=== PATIENT | female | born 1980 | race Caucasian/White ===

== ENCOUNTER → 2018-04-13 13:30 | Outpatient (CLI) | payer SELFPAY ==
[2018-04-16 15:04] LABS: HPV Reflexed? NOT INDICATED
== END ==
PROVIDERS: Visit Provider Obstetrics & Gynecology
DX: Z12.4 Encounter for screening for malignant neoplasm of cervix (principal)
CPT/HCPCS: 88175; G0145

== ENCOUNTER → 2018-07-09 08:17 | Outpatient (CLI) | payer SELFPAY ==
--- NOTE | 2018-07-09 08:22 | RAD_ITS ---
STUDY: X-RAY - ESOPHAGUS (BARIUM SWALLOW) WITH FLUOROSCOPY REASON FOR EXAM: Female, 37 years old. One-year history of dysphagia. TECHNIQUE: 13 view(s) of the esophagus were obtained following swallowing of barium. FLUOROSCOPY TIME (if supplied): (0:30) minutes/seconds COMPARISON: None. FINDINGS: There is no demonstrated esophageal foreign body. There is no demonstrated stricture or mucosal abnormality. Normal gastroesophageal junction, without a demonstrated hiatal hernia. The patient ingested a 12 mm tablet of barium without any difficulty. Normal visualized aortic arch and descending thoracic aorta. Normal visualized pulmonary parenchyma. Normal visualized osseous structures of the thorax. RAD/Esophagus Only IMPRESSION: Normal plain film x-ray examination (barium swallow) of the esophagus. Electronically Signed: Omar Franco MD at 9:40 EST , Service support ,
== END ==
PROVIDERS: Family Provider Nurse Practitioner Family; PCP Nurse Practitioner Family; Referring Provider Otolaryngology; Visit Provider Otolaryngology
DX: R13.10 Dysphagia, unspecified (principal)
CPT/HCPCS: 74220

== ENCOUNTER → 2019-06-09 17:56 | Outpatient (CLI) | payer OTHER, SELFPAY ==
[2019-06-09 20:42] LABS: Chlamydia Trachomatis by PCR Negative (Negative); Neisserai gonorrhoeae by PCR Negative (Negative); Probe Check PASS; Sample Adequacy Control PASS; Specimen Processing Control PASS
== END ==
PROVIDERS: Obstetrics & Gynecology; PCP Nurse Practitioner Family; Referring Provider Obstetrics & Gynecology; Visit Provider Obstetrics & Gynecology
DX: Z11.3 Encounter for screening for infections with a predominantly sexual mode of transmission (principal)
CPT/HCPCS: 87491; 87591

== ENCOUNTER → 2019-06-22 15:58 | Outpatient (CLI) | payer OTHER, SELFPAY ==
[2019-06-22 17:44] LABS: Color, Urine Yellow (Yellow); Glucose, Dipstick Normal (Normal); Ketone-Dipstick Negative (Negative); Leukocyte Esterase-Dipstick 25 /ul (Negative); Nitrite-Dipstick Negative (Negative); Occult Blood-Urine Negative /ul (Negative); Protein-Dipstick Negative (Negative); Specific Gravity, Urine 1.015 (1.002-1.030); Urine Bilirubin Dipstick Negative (Negative); Urine Clarity Clear (Clear); Urine Urobilinogen Normal (Normal)
[2019-06-22 17:47] LABS: Absolute Lymphocyte Count 1.76 X10^3/uL (0.83-4.51); Absolute Neutrophil Count 4.6 X10^3/uL (2.0-7.7); Basophil# 0.02 X10^3/uL; Basophil% 0.3 % (0-1); Eosinophil# 0.06 X10^3/uL; Eosinophils% 0.8 % (0-5); Hematocrit 36.1 % (37-47); Hemoglobin 11.6 g/dL (12.0-15.0); Lymphocyte # 1.76 X10^3/ul (4.0); Lymphocyte % 24.8 % (19-41); Mean Corp Hgb Conc 32.1 g/dL (32-36); Mean Corpuscular Hgb 26.4 pg (27.0-32.0); Mean Platelet Vol. 10.3 fl (6.2-12.0); Monocyte% 8.5 % (0-10); NRBC Flagged by Analyzer 0 % (0-5); Neutrophil # 4.63 X10^3/uL (2.7-7.7); Neutrophil % 65.3 % (47-70); Platelet Count 303 K/mm3 (150-450); RBC Distribution Width CV 16.1 % (11.6-14.6); RBC Distribution Width SD 48.1 fl (35.1-43.9); White Blood Count 7.1 K/mm3 (4.4-11.0)
[2019-06-23 10:08] LABS: HIV - WCH Non-Reactive (Nonreactive); Hepatitis B Surface Antigen Non-Reactive (Nonreactive); Hepatitis C Antibody Non-Reactive (Nonreactive)
[2019-06-24 03:50] LABS: Prenatal RPR NONREACTIVE (NONREACTIVE)
== END ==
PROVIDERS: Visit Provider Obstetrics & Gynecology
DX: Z34.81 Encounter for supervision of other normal pregnancy, first trimester (principal)
CPT/HCPCS: 36415; 81002; 84443; 85025; 86703; 86762; 86803; 87340

== ENCOUNTER 2019-09-17 08:45 | Outpatient (CLI) | payer OTHER, SELFPAY ==
[2019-09-17 08:52] VITALS: BP 136/77; PULSE 85; TEMP 36.9; O2SAT 98
[2019-09-17 09:05] VITALS: BMI 31.7
[2019-09-17 10:02] LABS: Mucous, Urine 0 SEEN /hpf (<or=2+); Red Blood Cells-Urine 0 SEEN /hpf (0-5); Squamous Epithelial Cells - UA 0 SEEN /hpf (5-10)
[2019-09-17 10:06] LABS: Absolute Lymphocyte Count 1.38 X10^3/uL (0.83-4.51); Absolute Neutrophil Count 7.4 X10^3/uL (2.0-7.7); Basophil# 0.02 X10^3/uL; Basophil% 0.2 % (0-1); Eosinophil# 0.05 X10^3/uL; Eosinophils% 0.5 % (0-5); Hematocrit 35.1 % (37-47); Hemoglobin 11.7 g/dL (12.0-15.0); Lymphocyte # 1.38 X10^3/ul (4.0); Lymphocyte % 14.5 % (19-41); Mean Corp Hgb Conc 33.3 g/dL (32-36); Mean Corpuscular Hgb 29.5 pg (27.0-32.0); Mean Corpuscular Volume 88.6 fL (81-99); Mean Platelet Vol. 9.7 fl (6.2-12.0); Monocyte# 0.65 X10^3/uL; Monocyte% 6.8 % (0-10); NRBC Flagged by Analyzer 0 % (0-5); Neutrophil # 7.41 X10^3/uL (2.7-7.7); Neutrophil % 77.6 % (47-70); Platelet Count 240 K/mm3 (150-450); RBC Distribution Width CV 14.4 % (11.6-14.6); RBC Distribution Width SD 46.3 fl (35.1-43.9); Red Blood Count 3.96 M/mm3 (4.2-5.4); White Blood Count 9.6 K/mm3 (4.4-11.0)
[2019-09-17 10:07] LABS: Color, Urine Yellow (Yellow); Glucose, Dipstick Normal (Normal); Ketone-Dipstick Negative (Negative); Leukocyte Esterase-Dipstick 100 /ul (Negative); Nitrite-Dipstick Negative (Negative); Occult Blood-Urine Negative /ul (Negative); Protein-Dipstick Negative (Negative); Urine Bilirubin Dipstick Negative (Negative); Urine Clarity Clear (Clear); Urine Urobilinogen Normal (Normal)
[2019-09-17 10:13] LABS: White Blood Cells 0-5 SEEN /hpf (0-5)
[2019-09-17 10:14] LABS: Bacteria 2+ /hpf (None Seen)
[2019-09-17 10:23] LABS: ALB/GLOB Ratio 0.6 RATIO (0.9-2.4); AST(SGOT) 20 U/L (15-37); Alanine Aminotransfer ALT/SGPT 23 U/L (13-56); Albumin, Serum 2.8 g/dL (3.2-5.0); Alkaline Phosphatase 63 U/L (45-117); Anion Gap 6 (5-15); BUN 7 mg/dL (7-18); Calcium,Total 8.9 mg/dL (8.5-10.1); Chloride 107 mmol/L (98-107); Creatinine, Serum 0.58 mg/dL (0.55-1.02); EST Glomerular Filtration Rate 122 mL/min (>60); Est Glom Filt Rate - Afr Amer 148 mL/min (>60); Estimated Creatinine Clearance 99.24 ml/min; Globulin 4.4 g/dL (2.2-4.2); Glucose 80 mg/dL (74-106); Potassium 3.8 mmol/L (3.5-5.1); Protein, Total 7.2 g/dL (6.4-8.2); Sodium Level 138 mmol/L (136-145)
--- NOTE | 2019-09-17 10:32 | US_ITS ---
STUDY: SECOND AND THIRD TRIMESTER OBSTETRICAL ULTRASOUND - LIMITED REASON FOR EXAM: Female, 38 years old RLQ PAIN -- HX OF RT UT FIBROID -- R/O ISCHEMIA -- R/O APPENDICITIS LMP: April 12, 2019. PRIOR ULTRASOUND: None. TECHNIQUE: Transabdominal and Transvaginal TECHNICAL QUALITY: Adequate. FINDINGS: There is a single intrauterine fetus. The fetus is in a cephalic presentation. There is demonstrated cardiac activity with a heart rate of 144 bpm. There is a normal amniotic fluid volume. The largest amniotic fluid pocket measures 3.8 cm x 4.1 cm. The amniotic fluid index (BUSTER) is normal. The placenta is anterior in location and is not low lying. There are Grade 1 placental changes. The cervix measures 4.6 cm in length. A nabothian cyst is seen within the cervix. 2 uterine fibroids are seen. The largest measures 6.9 cm x 9.4 cm by 4.9 cm. Blood flow is seen into the fibroid. The right lower quadrant was examined for appendicitis. The appendix was not identified. US/OB Limited (No Biometrics) IMPRESSION: Fibroid uterus as described. Single live intrauterine gestation. The fetus is in a cephalic presentation. Electronically Signed: Omar Franco, at 12:46 EDT , Service support ,
[2019-09-17 10:39] VITALS: BP 120/74; PULSE 84; TEMP 37.3; O2SAT 98
--- NOTE | 2019-09-17 13:13 | CT_ITS ---
STUDY: CT ABDOMEN AND PELVIS WITH CONTRAST REASON FOR EXAM: Female, 38 years old. R/O APPY 22 W W RLQ TENDERNESS, 2 UTERINE FIBROIDS RADIATION DOSAGE (If Supplied By Facility): CTDIvol = ( 18.29 ) mGy, DLP = ( 624.98 ) mGycm TECHNIQUE: Transaxial images were obtained from the dome of the diaphragm to the symphysis pubis with oral contrast. Oral and amp; IV Gastrografin and amp; 100mL Isovue-300 was administered. Sagittal and coronal images were reconstructed. Individualized dose optimization techniques were used for this CT. COMPARISON: None. FINDINGS: The visualized lung bases are unremarkable. The visualized portions of the heart are within normal limits. There is a 1.3 cm x 2.8 cm hypodense with peripheral enhancement in the dome of the right lobe of the suggestive of hemangioma. Normal gallbladder and extrahepatic biliary system. Normal spleen. Normal pancreas. Normal bilateral adrenal glands. Normal right kidney. Normal left kidney. Normal visualized stomach. Normal small intestine. Normal colon. The appendix is visualized and appears normal. Normal abdominal aorta. Normal inferior vena cava. Normal retroperitoneum. Normal urinary bladder. There is evidence of a gravid uterus. There is evidence of a 6.8 cm x 7.1 cm fibroid on the lateral aspect of the fundal portion of the uterus. Normal abdominal wall. Normal osseous structures. CT/Abdomen/Pelvis WITH Contrast IMPRESSION: No evidence of acute appendicitis. Electronically Signed: Omar Franco, at 15:55 EDT , Service support ,
[2019-09-17] MEDS: Contrast Allergy Safety Check IV (13:20)
[2019-09-17] MEDS: 0.9% Normal Saline 500 ML IV.SOLN. IV (14:06)
[2019-09-17] MEDS: Morphine 4 MG/ML Syringe IV (14:06)
[2019-09-17 14:19] VITALS: TEMP 36.9
[2019-09-17 14:20] VITALS: BP 118/73; PULSE 84; TEMP 36.9
--- NOTE | 2019-09-17 18:21 | OB.TRI.HP_ITS ---
- Problem List (1) 22 weeks gestation of Status: Acute (2) Uterine fibroid Status: Acute Qualifiers: Qualified Code(s): D25.9 - Leiomyoma of uterus, unspecified Comment: pedunculated History of Present Illness Date of Service: 09/17/19 Was patient seen by the physician?: Yes Reason For Visit: LOWER RIGHT SIDE PAIN Date of Service: 09/17/19 Final GE: 01/17/20 Final GE Source: US <20 weeks Gestational age: 22 Weeks and 4 Days History of Present Illness: 38yo @ 22 4/7wga with c/o right lower abdominal pain worsening over 2 days. Pain severe, sharp and non-radiating and without precipitant or alleviator. Has not used pain medications. No prior similar episodes. Allergies No Known Allergies Allergy (Verified 09/17/19 09:11) Laboratory Studies: Laboratory Tests 09/17/19 09/17/19 09/17/19 Range/Units 09:45 09:45 09:45 WBC 9.6 (4.4-11.0) K/mm3 RBC 3.96 L (4.2-5.4) M/mm3 Hgb 11.7 L (12.0-15.0) g/dL Hct 35.1 L (37-47) % MCV 88.6 (81-99) fL MCH 29.5 (27.0-32.0) pg MCHC 33.3 (32-36) g/dL RDW Std Deviation 46.3 H (35.1-43.9) fl RDW Coeff of Nic 14.4 (11.6-14.6) % Plt Count 240 (150-450) K/mm3 MPV 9.7 (6.2-12.0) fl Immature Gran % (Auto) 0.400 (0.0-0.9) % Neut % (Auto) 77.6 H (47-70) % Lymph % (Auto) 14.5 L (19-41) % Travis % (Auto) 6.8 (0-10) % Eos % (Auto) 0.5 (0-5) % Baso % (Auto) 0.2 (0-1) % Absolute Neuts (auto) 7.4 (2.0-7.7) X10^3/uL Absolute Lymphs (auto) 1.38 (0.83-4.51) X10^3/uL Nucleated RBC % 0 (0-5) % Sodium 138 (136-145) mmol/L Potassium 3.8 (3.5-5.1) mmol/L Chloride 107 (98-107) mmol/L Carbon Dioxide 25.0 (21.0-32.0) mmol/L Anion Gap 6 (5-15) BUN 7 (7-18) mg/dL Creatinine 0.58 (0.55-1.02) mg/dL Estim Creat Clear Calc 99.24 ml/min Est GFR (MDRD) Af Amer 148 (>60) mL/min Est GFR (MDRD) Non-Af 122 (>60) mL/min BUN/Creatinine Ratio 12.0 (10-20) RATIO Glucose 80 (74-106) mg/dL Calcium 8.9 (8.5-10.1) mg/dL Total Bilirubin 0.50 (0.20-1.00) mg/dL AST 20 (15-37) U/L ALT 23 (13-56) U/L Alkaline Phosphatase 63 (45-117) U/L Total Protein 7.2 (6.4-8.2) g/dL Albumin 2.8 L (3.2-5.0) g/dL Globulin 4.4 H (2.2-4.2) g/dL Albumin/Globulin Ratio 0.6 L (0.9-2.4) RATIO Urine Color Yellow (Yellow) Urine Clarity Clear (Clear) Urine pH 8.0 (5.0 - 8.0) Ur Specific [place] 1.010 (1.002-1.030) Urine Protein Negative (Negative) mg/dl Urine Glucose (UA) Normal (Normal) mg/dl Urine Ketones Negative (Negative) mg/dl Urine Occult Blood Negative (Negative) /ul Urine Nitrite Negative (Negative) Urine Bilirubin Negative (Negative) mg/dL Urine Urobilinogen Normal (Normal) mg/dl Ur Leukocyte Esterase 100 H (Negative) /ul Urine RBC 0 SEEN (0-5) /hpf Urine WBC 0-5 SEEN (0-5) /hpf Ur Squamous Epith Cells 0 SEEN (5-10) /hpf Urine Bacteria 2+ (None Seen) /hpf Urine Mucus 0 SEEN (<or=2+) /hpf Review of Systems Constitutional: Reports: Anorexia. Denies: Chills, Fever, Fatigue HEENT: Denies: Head Aches, Sore Throat, Visual Changes Cardiovascular: Denies: Chest Pain, Edema, Light Headedness Respiratory: Denies: Shortness of Breath Gastrointestinal: Reports: Abdominal Pain, Nausea. Denies: Vomiting Genitourinary: Denies: Dysuria, Frequency, Hematuria, Incontinence, Retention, Urgency Gynecological: Reports: - - Denies contractions, leaking of fluid. + FM. Denies: Vaginal bleeding Musculoskeletal: Denies: Back Pain Physical Exam Vitals: Vital Signs Temp Pulse BP Pulse Ox 98.4 F 84 118/73 98 09/17/19 14:20 09/17/19 14:20 09/17/19 14:20 09/17/19 10:39 General: Alert, Oriented x3, Cooperative, No apparent distress HEENT: Atraumatic, Normocephalic Cardiovascular: Regular rate, Regular Rhythm, Normal S1, Normal S2 Lungs: Clear to auscultation, Normal air movement Abdomen: Soft, Non-Distended, Gravid, - - + right lower abdominal tenderness Extremities:: No edema Neurological: Neuro grossly intact Estimated gestational size: Appropriate for gestational size NST - FHR Rate Baby A Baseline: 146 bpm Impression/Plan 38yo @ 22 4/7wga -US unremarkable, CT A/P without appendicitis. Pedunculated right uterine fibroid present and abutting the abdominal wall. Suspect fibroid ischemia related to . U/A with bacteria and leuks, cannot r/o UTI. -Observe for pain control, repeat abdominal exam x 2 unchanged from this am to this evening. -Macrobid for possible UTI Office Visits / Consults: [id number] OV L3 New
[2019-09-17] MEDS: Nitrofurantoin Macrocrystals 100 MG Capsule PO (18:54)
[2019-09-17] MEDS: Indomethacin 25 MG Capsule 50 MG PO (19:25)
[2019-09-17] MEDS: oxyCODONE 5 MG Tablet PO (19:36)
[2019-09-17 20:43] VITALS: BP 126/80; PULSE 77; TEMP 36.7
[2019-09-17 20:46] VITALS: BP 126/80; PULSE 77; TEMP 36.7; O2SAT 97
== END 2019-09-17 21:48 | disposition home or self-care (01) ==
LOC: WPOUT 08:47 → OBT 08:47 → WP 11:27
PROVIDERS: Referring Provider Obstetrics & Gynecology; Visit Provider Obstetrics & Gynecology
DX: O34.12 Maternal care for benign tumor of corpus uteri, second trimester (principal); D25.9 Leiomyoma of uterus, unspecified; Z3A.22 22 weeks gestation of pregnancy
CPT/HCPCS: 96374; 96375; 36415; 74177; 76815; 80053; 81001; 85025; 87086; 87088; 96372; 99218; J7040; Q9967; A4216; G0378

== ENCOUNTER → 2019-11-04 10:42 | Outpatient (CLI) | payer OTHER, SELFPAY ==
[2019-11-04 14:07] LABS: Hematocrit 32.9 % (37-47); Hemoglobin 11.1 g/dL (12.0-15.0); Mean Corp Hgb Conc 33.7 g/dL (32-36); Mean Corpuscular Hgb 30.3 pg (27.0-32.0); Mean Corpuscular Volume 89.9 fL (81-99); Mean Platelet Vol. 10.3 fl (6.2-12.0); Platelet Count 243 K/mm3 (150-450); RBC Distribution Width CV 12.8 % (11.6-14.6); RBC Distribution Width SD 41.6 fl (35.1-43.9); Red Blood Count 3.66 M/mm3 (4.2-5.4); White Blood Count 7.8 K/mm3 (4.4-11.0)
[2019-11-04 15:01] LABS: Glucose Challenge Gest 1H 50g 114 mg/dL (70-140)
== END ==
PROVIDERS: Visit Provider Obstetrics & Gynecology
DX: Z34.83 Encounter for supervision of other normal pregnancy, third trimester (principal)
CPT/HCPCS: 36415; 82950; 85027

== ENCOUNTER → 2019-12-23 10:57 | Outpatient (CLI) | payer OTHER, SELFPAY | PROVIDERS: PCP Nurse Practitioner Family; Visit Provider Obstetrics & Gynecology | DX: Z36.85 Encounter for antenatal screening for Streptococcus B (principal) | CPT/HCPCS: 87081 ==

== ENCOUNTER 2019-12-29 10:55 | Inpatient (IN) | payer SELFPAY, OTHER ==
[2019-12-29] VITALS (19 sets, daily range): BP systolic 126–166; BP diastolic 79–93; PULSE 64–85; RESP 18; TEMP 36.5–37.6; O2SAT 99; BMI 35.0
[2019-12-29] MEDS: Lactated Ringers 1,000 ML 50 ML IV (11:02)
--- NOTE | 2019-12-29 11:12 | PCM.HP.BLA ---
History and Physical Date of Admission: 12/29/19 OG ANTEPARTUM RECORD - HISTORY AND PHYSICAL (12/29/2019) Name: DIANE ARAGON History of This : This is a 39-year-old 4 para 2 AB 1 who presents at 37 weeks 2 days gestation with gestational hypertension and early labor. She also has a history of rapid first and second stage labors. care has been uneventful except the patient is known to have 2 rather large uterine fibroids present. These have not been bothersome to her during the . Blood pressure in the office today was elevated to 140/98. She has no proteinuria. OB Physician: MARCO 's Physician: DR DE LA O ...................................................................... : 1980 Age: 39 Address: [address] [place] [address] Phone: (h) [phone] (o) [phone] Insurance Carrier: Emergency Contact: ERIC/YESSICA [phone] ...................................................................... Final GE: 01/17/20 By Ultrasound: PARITY: (G-Total Pregnancies P-Fullterm,Premature,Induced AB,Spont AB, Ectopics, Multiple,Living) GE CONFIRMATION: By LMP: 04/20/19 Final GE: 01/17/20 OB PROBLEM LIST: VERY rapid 1st and 2nd stages of labor at 38 to 36 weeks. Declines AFP and CF tests. 8 y o son handicapped w Trisomy 9 Partial. 2 uterine fibroids are seen on u/s. The largest measures 6.9 cm x 9.4 cm by 4.9 cm 20w US - limited spine views - repeat at 28wga. ALLERGIES: NKDA MEDICATIONS: Calcium 500 500 mg calcium (1,250 mg) tablet,chewable 1 tab po daily famotidine 20 mg tablet One pill by mouth twice a day 28 mg iron-800 mcg tablet One pill by mouth once a day Probiotic 10 billion cell capsule One pill by mouth once a day promethazine 12.5 mg tablet One pill by mouth four times a day prn nausea SOCIAL HISTORY: Smoking - Never Alcohol Use - denies drinking Diet - balanced Diet, caffeine < 2 drinks per day and Water intake tries for 64-86 Lifestyle - low stress lifestyle and Exercise - active work and Walks two plus times weekly. Employer - [employer] Job Description - Illicit Drug Use - denies use of street drugs Sexual Activity - Place of - [place] Spouse-Sig Other Name - Eric Spouse-Sig Other Occupation - [employer] Spouse-Sig Other Phone No - [phone] Children Name(s) - Telma Plummer Jared ([facility]) PRIOR DELIVERY HISTORY DEL DATE GEST LAB WT LB WT OZ TYPE ANES LABOR TX Apr 20 38 4 6 15 Vag None No Mar 24 37 1 6 5 Vag None No Dec 27 36 1 5 3 Vag None No ANTEPARTUM FLOW CHART VISIT GE RTC FU F F IL U U DATE WK MD WKS HT PN HR M SS BP ED WT IL GL D EF ST __ ____ ___ __ __ ___ __ __ __ ___ __ __ __ ___ __ 12 Dec JMW 1 38 V + + 140/98 0 186 tr - 5+ 75 -2 Dec JMW 1 36 V + + 128/70 sl 186 - - 3 75 -2 Nov JMW 2 34 + + 122/86 sl 184 - - Nov JMW 2 34 + + 126/78 sl 182 - - Nov 14 JMW 3 29 + + 130/72 sl 178 - - October 11 JMW 3 26 + + 130/72 tr 174 tr - Sep 06 SHM 4 22 + + 130/80 sl 170 tr - Jul 29 JMW 6 + ? 138/72 0 156 tr - 04 Jun 27 JMW 4 + US 138/82 0 152 - - ANTEPARTUM NOTE(S): Dec 29 2019: pelvic pressure, Andrews Ramirez, nausea, Induce Dec 22 2020: Ctxs-occas, GBS Today,LARC form signed Dec 09 2019: Good FM Nov 25 2019: see prog note, Doing Well Nov 04 2019: CBC,OGCT Today, Good FM,Feeling Well October 12 2020: Sono Today,Glucola/Instructions Given,Good FM Sep 07 2020: comp u/s today Jul 21 2019: NAusea and Fatigue Improving Jun 22 2019: Sono,NOB and PNV Today,Nausea Better COMPREHENSIVE ANTEPARTUM NOTE(S): Dec 29 2019: Diane is doing ok. She reports she is becoming uncomfortable with pelvic pressure, Andrews Ramirez, and increased nausea. She noticed some mucous discharged tinged with blood last week and continues to have have yellow mucous discharge intermittently. FM is present. No edema. Would like SVE today. B/P 140/98, recheck after 5 min's of pt lying on Lt side: 138/92. Denies blurry vision and headaches. MK Dec 29 2019: I called Patito JESUS in [facility] as Diane is being sent over from our Office today for PIH and dilated 5 cm. CHER Dec 27 2019: H taken to OB. tkg Dec 09 2019: Diane is her today for her PNV. She is doing good. Good FM. She has some edema due to warm weather, she wears stocking for swelling that are helping. Andrews Ramirez are present. Medications and allergies reviewed today. No other questions or concerns expressed today. LJW Nov 25 2019: Diane is here today for her visit. Patient states that she has been doing well but did note an increase in contractions on Friday that were more intense. Patient states that she rested for 15 min and noted improvement with no further contractions at that time. Patient denies any contractions at today's visit. Patient denies any urinary sx long dip done in the office negative. Patient encouraged to increase water intake and rest if contractions return if no improvement with rest and fluids she is to call the office or go to L for eval if after hours. Patient agreeable. Patient is wearing support stocking for swelling and those are helping. jlb Oct 06 2019: here for PNV. Glucola given with instructions, may eat higher protein and avoid carbs/sugars that morning. Will also be getting repeat US at next visit for limited spinal views. Reports +FM. FHR today_. To return in 3 weeks -CH Sep 08 2019: EFW AGA - 58th%, awaiting sex at delivery. Limited spine views, otherwise wnl. Recommend repeat US at 28wga, pt in agreement. Jun 22 2019: Diane is here with her 13 year old daughter for NOB nurse visit with GE 01-17-20 planning a vag del at [facility] without an epidural and using Dr De La O for post discharge ped care. She plans to breastfeed. 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 Her , Eric is a optometrist/practice owner. The was unexpected but welcome. Their first baby was born with hydrocephalus, went to [facility] when born and has had one shunt and is doing well. Her daughter had no issues, Their youngest son has Trisomy 9 partial. He is in a w/c and doesn't talk. All three pregnancies delivered early- from 38 to 36 weeks with rapid labor and rapid second stage. Diane is a lifetime non smoker, non drinker and denies street drug use. Her diet is balanced with 2-3 liters of water daily. She is very active with her home, chores and 8 yo handicapped son. He weighs 50# and she often has to lift him. Suggested having someone else lift if available and to be careful if she must. She and her take walks together about twice a week. Genetics Screening form completed noting two uncles with hemophilia and the issues her two sons have. She declines AFP and CF tests. Warning signs in pg reviewed as well as OTC meds ok to take prn, lifting restriction of 20-25# (except her son if needed.) , the importance of protein in her diet, and reaching the office after hours w understanding voiced. She was also enc to ALWAYS wear her seatbelt regardless of her place in the vehicle. Diane was given a copy of What to Expect today as she'd given her last copy away. US done. labs drawn today. They have no cats. She is aware of litter box issues. Enc to call w any concerns. Visit took approx 50 min. Mia JESUS NEW Jun 09 2019: Diane presents here today for Missed Menses appointment. 38 y.o. G 4 P 3 non-smoker with regular menses and LMP of 19 lasting her average of 5 days. UPT is positive today in our Office. Presents here today at 8 weeks 1 day with an approximate GE of 01-26-20. Last in 2018 with a Partial Trisomy 9 and doing well. Denies spotting/bleeding thus far in with danger signs and bleeding in reviewed. Reports nausea and tender breasts. Taking an OTC Vitamin daily with Educational Materials given. Medication and Allergy lists up-dated. CHER Jun 09 2019: ok REVIEW OF SYSTEMS: GENERAL - Denies fever, or chills SKIN - Denies rash, new skin lesions, or change in moles EYES - Denies blurred vision, or change in visual acuity EARS - Denies ear pain, or difficulty hearing NOSE - Denies nasal congestion, discharge, or bleeding MOUTH - Denies sore throat, or difficulty swallowing NECK - Denies pain or swelling RESPIRATORY - Denies shortness of breath, cough, wheezing CARDIOVASCULAR - Denies palpitations, chest pain, orthopnea, PND, peripheral edema, syncope or claudication GASTROINTESTINAL - Denies nausea, vomiting, diarrhea, constipation, Denies abdominal pain, melena and or bright red blood GENITOURINARY - Denies dysuria, frequency of urination, urgency, or hesitancy MUSCULOSKELETAL - Denies joint or muscle pain, or back pain NEUROLOGICAL - Denies localized numbness, weakness, or tingling PSYCHIATRIC - Denies depression, anxiety, substance abuse or suicide attempts ENDOCRINE - Denies heat or cold intolerance, weight loss or gain, increasing thirst HEMATO-IMMUNOLOGIC - Denies easy bruising, bleeding, oral ulcerations or recurrent infections GENETICS SCREENING: Age 35+ years: Yes Thalassemia: No Neural Tube Defect: No Down Syndrome: No HAYDER-SACHS: No Sickle Cell Disease: No Hemophilia: Yes Musc. Dystrophy: No Cystic Fibrosis: No-declines screening [place] Chorea: No Mental Retardation: No Fragile X: No Other genetic: No Other defects: No SABs/still births: No Drugs since LMP: Yes INFECTION HISTORY: High risk AIDS: No High risk Hepatitis: No Exposed to TB: No Exposed to Herpes: No Rash/viral illness since LMP: No History of STD: No MENSTRUAL HISTORY: *Menses Amount/Duration: 5 daysMenses Regularity: RegularFrequency: monthlyMenarche (Age Onset): 13* PAST SUMMARY: PARITY: 1. Total Pregnancies............ 4 2. Full Term Pregnancies........ 2 3. Premature.................... 1 4. Abortions - Induced.......... 0 5. Abortions - Spontaneous...... 0 6. Ectopics..................... 0 7. Multiple Births.............. 0 8. Living Children.............. 3 PAST #1: Date of :.................. 04/29/03 Gestation Weeks:................ 38 Length of labor(hours):......... 4 Sex:............................ M Weight-lbs:............... 6 Weight-oz:................ 15 Type of Delivery:............... Vag Type of Anesthesia:............. None Place of Delivery:.............. [place] Treatment of Labor?:.... No Comment: HIGH BP, [facility] N[facility], HYDROCEP. PAST #2: Date of :.................. 04/01/06 Gestation Weeks:................ 37 Length of labor(hours):......... 1 Sex:............................ F Weight-lbs:............... 6 Weight-oz:................ 5 Type of Delivery:............... Vag Type of Anesthesia:............. None Place of Delivery:.............. [place] Treatment of Labor?:.... No Comment: RAPID LABOR, RAPID 2ND STAGE PAST #3: Date of :.................. 01/01/11 Gestation Weeks:................ 36 Length of labor(hours):......... 1 Sex:............................ M Weight-lbs:............... 5 Weight-oz:................ 3 Type of Delivery:............... Vag Type of Anesthesia:............. None Place of Delivery:.............. [place] Treatment of Labor?:.... No Comment: [facility] X4W. PHYSICAL EXAMINATION General Appearence: 39 yo female in no acute distress Vital Signs: AF, VSS Heart: RRR without rubs or gallops Lungs: CTA x 2 Breasts: deferred Abdomen: gravid Pelvis: Cervix: 5+/75 bulgy bag of water intact Presentation: cephalic Station: -2 Fetus: Size: AGA Movement: present Heart: present Labs for : DIANE ARAGON since 04/22/2019 ORDER DATEIN DESCRIPTION VALUE UNITS RANGE A+ COMMENT CULTURE, GROUP B STREPTOCOCCUS 12/23/19 NOTE Original Ordering Provider: Da Pal Comments: VAGINAL/RECTAL BRIDGER Culture Group B Beta Streptococcus is not isolated. Reviewed by DA GLUCOSE CHALLENGE GEST 1H 50G 11/04/19 NOTE Original Ordering Provider: Da Pal GLU GEST 50G 1H 114 mg/dL 70-140 Reviewed by DA CBC-COMPLETE BLOOD CNT NO DIFF 11/04/19 NOTE Original Ordering Provider: Da Pal WBC 7.8 K/mm3 4.4-11.0 RBC 3.66 M/mm3 4.2-5.4 L HGB 11.1 g/dL 12.0-15.0 L HCT 32.9 % 37-47 L MCV 89.9 fL 81-99 MCH 30.3 pg 27.0-32.0 MCHC 33.7 g/dL 32-36 RDW CV 12.8 % 11.6-14.6 RDW SD 41.6 fl 35.1-43.9 PLT 243 K/mm3 150-450 MPV 10.3 fl 6.2-12.0 Reviewed by DA ABDOMEN/PELVIS WITH CONTRAST 09/17/19 [facility] Imaging Services [address] [place] [id number] Abdomen/Pelvis WITH Contrast MR#: [id number] Acct: [id number] Name: DINAE ARAGON Rep #: [id number] : 1980 F 38 From: Omar Franco MD PCP: Status: REG CLI Study: Abdomen/Pelvis WITH Contrast Date of Exam: 09/17/19 Exam# [id number] Ordering Dr: Coty Parson MD STUDY: CT ABDOMEN AND PELVIS WITH CONTRAST REASON FOR EXAM: Female, 38 years old. R/O APPY 22 W W RLQ TENDERNESS, 2 UTERINE FIBROIDS RADIATION DOSAGE (If Supplied By Facility): CTDIvol = ( 18.29 ) mGy, DLP = ( 624.98 ) mGycm TECHNIQUE: Transaxial images were obtained from the dome of the diaphragm to the symphysis pubis with oral contrast. Oral and amp; IV Gastrografin and amp; 100mL Isovue-300 was administered. Sagittal and coronal images were reconstructed. Individualized dose optimization techniques were used for this CT. COMPARISON: None. FINDINGS: The visualized lung bases are unremarkable. The visualized portions of the heart are within normal limits. There is a 1.3 cm x 2.8 cm hypodense with peripheral enhancement in the dome of the right lobe of the suggestive of hemangioma. Normal gallbladder and extrahepatic biliary system. Normal spleen. Normal pancreas. Normal bilateral adrenal glands. Normal right kidney. Normal left kidney. Normal visualized stomach. Normal small intestine. Normal colon. The appendix is visualized and appears normal. Normal abdominal aorta. Normal inferior vena cava. Normal retroperitoneum. Normal urinary bladder. There is evidence of a gravid uterus. There is evidence of a 6.8 cm x 7.1 cm fibroid on the lateral aspect of the fundal portion of the uterus. Normal abdominal wall. Normal osseous structures. CT/Abdomen/Pelvis WITH Contrast IMPRESSION: No evidence of acute appendicitis. Electronically Signed: Omar Franco, at 15:55 EDT , Service support , CC: Coty Parson MD Machine Programmer: Signed Reviewed by DA OB MedAdherence (NO BIOMETRICS) 09/17/19 [facility] Imaging Services [address] [place] [id number] OB Rising (No Biometrics) MR#: [id number] Acct: [id number] Name: DIANE ARAGON Rep #: [id number] : 1980 F 38 From: Omar Franco MD PCP: Status: REG CLI Study: OB Limited (No Biometrics) Date of Exam: 09/17/19 Exam# [id number] Ordering Dr: Coty Parson MD STUDY: SECOND AND THIRD TRIMESTER OBSTETRICAL ULTRASOUND - LIMITED REASON FOR EXAM: Female, 38 years old RLQ PAIN -- HX OF RT UT FIBROID -- R/O ISCHEMIA -- R/O APPENDICITIS LMP: April 12, 2019. PRIOR ULTRASOUND: None. TECHNIQUE: Transabdominal and Transvaginal TECHNICAL QUALITY: Adequate. FINDINGS: There is a single intrauterine fetus. The fetus is in a cephalic presentation. There is demonstrated cardiac activity with a heart rate of 144 bpm. There is a normal amniotic fluid volume. The largest amniotic fluid pocket measures 3.8 cm x 4.1 cm. The amniotic fluid index (BUSTER) is normal. The placenta is anterior in location and is not low lying. There are Grade 1 placental changes. The cervix measures 4.6 cm in length. A nabothian cyst is seen within the cervix. 2 uterine fibroids are seen. The largest measures 6.9 cm x 9.4 cm by 4.9 cm. Blood flow is seen into the fibroid. The right lower quadrant was examined for appendicitis. The appendix was not identified. US/OB Limited (No Biometrics) IMPRESSION: Fibroid uterus as described. Single live intrauterine gestation. The fetus is in a cephalic presentation. Electronically Signed: Omar Franco, at 12:46 EDT , Service support , CC: Coty Parson MD Machine Programmer: Signed Reviewed by DA ESTRADA, URINE 09/17/19 NOTE Original Ordering Provider: Coty Parson Urine Culture Below infection level. ORGANISM 1: Mixed Gram Positive Organisms [place] Count 1000-10,000 Reviewed by DA [facility] METABOLIC PROFIL 09/17/19 NOTE Original Ordering Provider: Coty Parson GLU 80 mg/dL 74-106 Please note revised GLUCOSE reference range effective 06/20/2017. BUN 7 mg/dL 7-18 CREAT,SERUM 0.58 mg/dL 0.55-1.02 The validity of the calculated GFR AND GFRAA in patients over 70 years has not been determined. Clinical correlation is essential. EST GFR 122 mL/min >60 Non- GFR Calc EST GFR - AA 148 mL/min >60 GFR Calc ESTIMATED CRCL 99.24 ml/min BUN/CRE 12.0 RATIO 10-20 T PROT 7.2 g/dL 6.4-8.2 ALB 2.8 g/dL 3.2-5.0 L GLOB 4.4 g/dL 2.2-4.2 H A/G 0.6 RATIO 0.9-2.4 L CA 8.9 mg/dL 8.5-10.1 AST 20 U/L 15-37 ALK P 63 U/L 45-117 ALT 23 U/L 13-56 T BILI 0.50 mg/dL 0.20-1.00 For patients on eltrombopag therapy, use of Dimension Mcrae TBIL is not recommended. NA 138 mmol/L 136-145 K 3.8 mmol/L 3.5-5.1 CL 107 mmol/L 98-107 CO2 25.0 mmol/L 21.0-32.0 GAP 6 5-15 Reviewed by COTY URINALYSIS, COMPLETE 09/17/19 NOTE Original Ordering Provider: Coty Parson COLOR Yellow Yellow CLARITY Clear Clear GLUCOSE, UR Normal mg/dl Normal BILIRUBIN URINE Negative mg/dL Negative KETONE UR Negative mg/dl Negative SP.GR. DIPSTX 1.010 1.002-1.030 PH UR 8.0 5.0 - 8.0 PROT DIPSTX Negative mg/dl Negative UROBILI Normal mg/dl Normal NITRITE UR Negative Negative OCCULT BLOOD-UR Negative /ul Negative LEUK ESTERASE 100 /ul Negative H WBC 0-5 SEEN /hpf 0-5 RBC-UA 0 SEEN /hpf 0-5 SQUAM EPI 0 SEEN /hpf 5-10 BACTERIA 2+ /hpf None Seen MUCUS, URINE 0 SEEN /hpf <OR=2+ Reviewed by COTY CBC W/DIFF, AUTOMATED 09/17/19 NOTE Original Ordering Provider: Coty Parson WBC 9.6 K/mm3 4.4-11.0 RBC 3.96 M/mm3 4.2-5.4 L HGB 11.7 g/dL 12.0-15.0 L HCT 35.1 % 37-47 L MCV 88.6 fL 81-99 MCH 29.5 pg 27.0-32.0 MCHC 33.3 g/dL 32-36 RDW CV 14.4 % 11.6-14.6 RDW SD 46.3 fl 35.1-43.9 H PLT 240 K/mm3 150-450 MPV 9.7 fl 6.2-12.0 NEUT% 77.6 % 47-70 H LY% 14.5 % 19-41 L MONO% 6.8 % 0-10 EO% 0.5 % 0-5 BASO% 0.2 % 0-1 IM GRAN % 0.400 % 0.0-0.9 IG% - Immature Granulocytes (promyelocytes, myelocytes and metamyelocytes) > 1% indicates that a LEFT SHIFT is Present. ABSOLUTE NEUT 7.4 X10 3/uL 2.0-7.7 ABSOLUTE LYMPH 1.38 X10 3/uL 0.83-4.51 NRBC, FLAGGED 0 % 0-5 Reviewed by COTY [facility] RPR 06/22/19 NOTE Original Ordering Provider: Da Pal RPR NONREACTIVE NONREACTIVE Reviewed by FREDY HEPATITIS C ANTIBODY 06/22/19 NOTE Original Ordering Provider: Da Pal HEPATITIS C AB Non-Reactive Nonreactive Non Reactive: < 0.8 Equivocal: >/= 0.8 to < 1.0 Reactive: >/= 1.0 The CDC recommends that a reactive/equivocal HCV antibody result be followed up by the HCV Nucleic Acid Amplification test (944100) Reviewed by FREDY HEPATITIS B SURFACE ANTIGEN 06/22/19 NOTE Original Ordering Provider: Da Pal HEPB SURFACE AG Non-Reactive Nonreactive Reviewed by FREDY HIV - H 06/22/19 NOTE Original Ordering Provider: Da Pal HIV [facility] Non-Reactive Nonreactive Reviewed by FREDY RUBELLA IGG 06/22/19 NOTE Original Ordering Provider: Da Pal RUBELLA IGG 103.0 IU/mL Antibody results Interpretation of Immune Status < 5 IU/ml Presumed Non-immune 5 - < 10 IU/ml Equivocal > or = 10 IU/ml Presumed Immune Reviewed by FREDY T AND S-NO CHARGE W/PNP 06/22/19 Reason for Type AND Screen/Red Cells: Surgery? N [facility]~[address] [place], [address]~ BLOOD TYPE GEL A POSITIVE N AB SCREEN GEL NEGATIVE N Reviewed by DA THYROID STIM HORMONE (TSH) 06/22/19 NOTE Original Ordering Provider: Da Pal TSH 1.90 uIU/mL 0.358-3.74 Reviewed by DA CBC W/DIFF, AUTOMATED 06/22/19 NOTE Original Ordering Provider: Da Pal WBC 7.1 K/mm3 4.4-11.0 RBC 4.40 M/mm3 4.2-5.4 HGB 11.6 g/dL 12.0-15.0 L HCT 36.1 % 37-47 L MCV 82.0 fL 81-99 MCH 26.4 pg 27.0-32.0 L MCHC 32.1 g/dL 32-36 RDW CV 16.1 % 11.6-14.6 H RDW SD 48.1 fl 35.1-43.9 H PLT 303 K/mm3 150-450 MPV 10.3 fl 6.2-12.0 NEUT% 65.3 % 47-70 LY% 24.8 % 19-41 MONO% 8.5 % 0-10 EO% 0.8 % 0-5 BASO% 0.3 % 0-1 IM GRAN % 0.300 % 0.0-0.9 IG% - Immature Granulocytes (promyelocytes, myelocytes and metamyelocytes) > 1% indicates that a LEFT SHIFT is Present. ABSOLUTE NEUT 4.6 X10 3/uL 2.0-7.7 ABSOLUTE LYMPH 1.76 X10 3/uL 0.83-4.51 NRBC, FLAGGED 0 % 0-5 Reviewed by DA URINALYSIS, ROUTINE (DIPSTICK) 06/22/19 NOTE Original Ordering Provider: Da Pal COLOR Yellow Yellow CLARITY Clear Clear GLUCOSE, UR Normal mg/dl Normal BILIRUBIN URINE Negative mg/dL Negative KETONE UR Negative mg/dl Negative SP.GR. DIPSTX 1.015 1.002-1.030 PH UR 8.0 5.0 - 8.0 PROT DIPSTX Negative mg/dl Negative UROBILI Normal mg/dl Normal NITRITE UR Negative Negative OCCULT BLOOD-UR Negative /ul Negative LEUK ESTERASE 25 /ul Negative H Reviewed by DA [place]/KAREN [facility] BY PCR 06/09/19 NOTE Original Ordering Provider: Emelyn DE JESUS [facility] PCR Negative Negative NG BY PCR Negative Negative Reviewed by CHARTMAN PROVIDER SIGNATURE ( REQUIRED) Impression /Plan: 37-week 2-day intrauterine with gestational hypertension and early labor with a history of rapid first and second stages of labor. Plan rupture of membranes. Preparations in progress for delivery.
[2019-12-29 11:32] LABS: Absolute Lymphocyte Count 1.47 X10^3/uL (0.83-4.51); Absolute Neutrophil Count 5.3 X10^3/uL (2.0-7.7); Basophil# 0.03 X10^3/uL; Basophil% 0.4 % (0-1); Eosinophil# 0.07 X10^3/uL; Eosinophils% 0.9 % (0-5); Hematocrit 35.2 % (37-47); Hemoglobin 11.8 g/dL (12.0-15.0); Lymphocyte # 1.47 X10^3/ul (4.0); Lymphocyte % 19.9 % (19-41); Mean Corp Hgb Conc 33.5 g/dL (32-36); Mean Corpuscular Hgb 29.3 pg (27.0-32.0); Mean Corpuscular Volume 87.3 fL (81-99); Mean Platelet Vol. 11.7 fl (6.2-12.0); Monocyte% 6.8 % (0-10); NRBC Flagged by Analyzer 0 % (0-5); Neutrophil % 71.7 % (47-70); Platelet Count 243 K/mm3 (150-450); RBC Distribution Width CV 12.6 % (11.6-14.6); RBC Distribution Width SD 40.2 fl (35.1-43.9); Red Blood Count 4.03 M/mm3 (4.2-5.4); White Blood Count 7.4 K/mm3 (4.4-11.0)
[2019-12-29] MEDS: Oxytocin 30 units/NS 500 ml 30 UNITS/500 ML IV.SOLN 334 UNITS IV (15:27)
--- NOTE | 2019-12-29 15:37 | PCM.OPRPT ---
Vaginal Delivery Maternal Presentation: Medically Indicated Induction - Gestational HTN Method of Induction: Amniotomy Medical Reason for Induction: Gestational Hypertension Amniotic Membrane Rupture Type: Artificial Amniotic Fluid Description: Clear Final GE: 01/17/20 Final GE Source: US <20 weeks Gestational age: 37 Weeks and 2 Days Date of Procedure: 12/29/19 Pre-Operative Diagnosis: IUP Post-Operative Diagnosis: IUP Surgery/ Procedure Performed: Spontaneous Vaginal Delivery Type of Anesthesia: None Description of Procedure: Spontaneous vaginal delivery of a viable male infant with Apgars of 9/9 from an occiput anterior presentation with clear amniotic fluid and normal three-vessel placenta. No episiotomy. Second-degree midline laceration repaired with 3-0 Rapide suture. Sponges okay. Delivery physician: Tony Pal MD. Presentation: Vertex Placental Delivery Description: Spontaneous Placenta Disposition: [facility] Cord Vessel Description: 3 Vessels Cord Entanglement: None Estimated Blood Loss: 250 cc A gender: Male (1 minute): 9 (5 minute): 9 Episiotomy Description: None Laceration: Midline, 2nd degree Medications given after delivery: IV Pitocin Complications: None
--- NOTE | 2019-12-29 15:41 | DCINST_ITS ---
<Tony Pal - Last Filed: 12/29/19 15:41> Discharge Activity: May Shower, May Take a Tub Bath May resume sexual activity in: 4-6 weeks Additional Activity Instructions:: Nothing in the vagina for 4-6 weeks. You may return to work/school in 6 weeks. Call your doctor if you observe: Inability to urinate, Inability to have a bowel movement, Using more than one pad per hour Additional Instructions: If you experience any of the following, contact your healthcare provider. * Bleeding that soaks a pad every hour for 2 hours * Fever 100.4 or higher * Unrelieved incision or abdominal pain * Swelling, redness, discharge or bleeding from your incision or episiotomy site * Your incision begins to separate * Problems urinating (including inability to urinate or burning while urinating). * Visual changes * Severe headache * Flu-like symptoms * Pain or redness in one of both of your breasts * Pain, warmth, tenderness or swelling in your legs, especially the calf area * Frequent nausea and vomiting * Symptoms of depression or anxiety If you experience any of the following, call 911 or go to the nearest Emergency Room. * Chest pain * Problems breathing * Seizure activity * Partial or complete paralysis of a body part, slurred speech, weakness or drooping of the face, or a sudden inability to walk or hold your balance Allergies/Adverse Reactions: Allergies No Known Allergies Allergy (Verified 12/29/19 11:12) Medications to take at Discharge Vits [Prenatabs FA ] 1 tab PO DAILY 09/17/19 Calcium Carbonate [Calcium] 1 tab PO DAILY 12/29/19 Famotidine 20 mg PO DAILY 12/29/19 L.acidoph,Paracasei, B.lactis [Probiotic] 1 ea PO DAILY 12/29/19 Please Follow Up With: Tony Pal MD - [phone] When: Call to make an appointment with your doctor in 6 weeks. Primary Care Physician: Alex Hirsch NP-C [Primary Care Provider] - Test Results: Test results from this visit will be discussed in further detail at your follow- up appointment, if applicable. <Valery Givens - Last Filed: 12/30/19 08:20> Additional Instructions: If you experience any of the following, contact your healthcare provider. * Bleeding that soaks a pad every hour for 2 hours * Fever 100.4 or higher * Unrelieved incision or abdominal pain * Swelling, redness, discharge or bleeding from your incision or episiotomy site * Your incision begins to separate * Problems urinating (including inability to urinate or burning while urinating). * Visual changes * Severe headache * Flu-like symptoms * Pain or redness in one of both of your breasts * Pain, warmth, tenderness or swelling in your legs, especially the calf area * Frequent nausea and vomiting * Symptoms of depression or anxiety If you experience any of the following, call 911 or go to the nearest Emergency Room. * Chest pain * Problems breathing * Seizure activity * Partial or complete paralysis of a body part, slurred speech, weakness or drooping of the face, or a sudden inability to walk or hold your balance Test Results: Test results from this visit will be discussed in further detail at your follow- up appointment, if applicable.
[2019-12-29] MEDS: Ibuprofen 600 MG Tablet PO (16:30)
[2019-12-29] MEDS: oxyCODONE 5 MG Tablet PO (17:44)
--- NOTE | 2019-12-29 18:13 | NURSING ---
Dr Pal aware of pt blood pressures will continue to monitor and keep him updated. pt is asymptomatic at this time.
[2019-12-30 01:25] VITALS: BP 111/66; PULSE 82; RESP 18; TEMP 37.3
[2019-12-30] MEDS: oxyCODONE 5 MG Tablet PO (01:39)
[2019-12-30 03:50] VITALS: BP 135/82; PULSE 69; RESP 18; TEMP 36.7
[2019-12-30] MEDS: Ibuprofen 600 MG Tablet PO ×3 (06:51→18:38)
--- NOTE | 2019-12-30 08:12 | PCM.PN.OB ---
Subjective: Feeling really good today. Only pain or complaint is while having cramps, rates them a 4/10 but relieved with Motrin. Has been ambulating in her room, tolerating a regular diet, and passing flatus. Objective: VSS. Fundus if firm, midline, u/1. Lochia rubra moderate. - Physical Exam Vitals/I&O's: Vital Signs Temp Pulse Resp BP Pulse Ox 98.1 F 69 18 135/82 H 99 12/30/19 03:50 12/30/19 03:50 12/30/19 03:50 12/30/19 03:50 12/29/19 16:19 Oxygen Delivery Method Room Air Weight: 84.2 kg Body Mass Index (BMI) 35.0 Intake and Output for Last 24 Hours 12/28/19 12/29/19 12/30/19 23:59 23:59 23:59 Intake Total 1220.83 / 1220.83 Output Total 800 / 800 Balance 420.83 / 420.83 General: Alert, Oriented x3, Cooperative HEENT: Atraumatic, PERRLA, EOMI, Normocephalic Neck: Supple, No JVD, Negative Carotid Bruits Lungs: Clear to auscultation, Normal air movement Cardiovascular: Regular rate, No murmurs Abdomen: Bowel Sounds Present, Soft, Non Tender Extremities: No edema, Capillary Refill Less than 3 Seconds Skin: No rashes, No breakdown Musculoskeletal: No Tenderness to Palpation of Joints or Extremities Neurological: Cranial nerves II-XII grossly intact Psych/Mental Status: Normal Affect, Appropriate Laboratory Results 12/29/19 11:20: WBC 7.4, RBC 4.03 L, Hgb 11.8 L, Hct 35.2 L, MCV 87.3, MCH 29.3, MCHC 33.5, RDW Std Deviation 40.2, RDW Coeff of Nic 12.6, Plt Count 243, MPV 11.7, Immature Gran % (Auto) 0.300, Neut % (Auto) 71.7 H, Lymph % (Auto) 19.9, [place] % (Auto) 6.8, Eos % (Auto) 0.9, Baso % (Auto) 0.4, Absolute Neuts (auto) 5.3, Absolute Lymphs (auto) 1.47, Nucleated RBC % 0 12/29/19 11:20: Blood Type A POSITIVE, Antibody Screen NEGATIVE Current Medications Acetaminophen (Tylenol) 1,000 mg PO Q8H PRN PRN PRN Reason: Pain Score 1-3/10 Bisacodyl (Dulcolax) 10 mg RECTAL UD PRN PRN Reason: If no BM Dibucaine (Dibucaine) 1 applic TOPICAL TID PRN PRN; Protocol PRN Reason: Discomfort Famotidine (Pepcid) 20 mg PO DAILY GLENROY Hydrocortisone (Hytone) 1 applic TOPICAL TID PRN PRN; Protocol PRN Reason: Discomfort Ibuprofen (Motrin) 600 mg PO Q6H PRN PRN PRN Reason: Pain Score 1-3/10 Last Admin: 12/30/19 06:51 Dose: 600 mg Documented by: Methylergonovine Maleate (Methergine) 0.2 mg IM X1 PRN PRN Reason: Excess bleeding/uterine atony Ondansetron HCl (Zofran) 4 mg IV Q4H PRN PRN PRN Reason: Nausea Oxycodone HCl (Oxyir) 5 - 10 mg PO Q4H PRN PRN PRN Reason: Pain Score 4-10/10 Last Admin: 12/30/19 01:39 Dose: 5 mg Documented by: Senna/Docusate Sodium (Senokot-S, Sangeeta-Colace) 1 - 2 tablet PO DAILY PRN PRN PRN Reason: Constipation Simethicone (Mylicon) 80 mg PO PCHS PRN PRN Reason: Indigestion/Stomach pain Sodium Chloride () 5 - 15 ml IV UD PRN PRN Reason: SALINE FLUSH Zolpidem Tartrate (Ambien (Generic)) 5 mg PO QHS PRN PRN PRN Reason: Insomnia Medical Necessity - Tobacco Use Smoking Status: Never smoker Assessment/Plan All Active Problems 22 weeks gestation of (Acute) Uterine fibroid (Acute) A/P: S/P Day #1 mother Cramping while , but relieved with Motrin. Discussed heat at home if needed Normal involution and lochia Dyad stable Educated on normal lochia patterns, cramping, and signs of PPD Already has 6 week follow up scheduled with Dr. Pal To call with any questions or concerns May discharge home today
[2019-12-30 09:11] VITALS: BP 134/81; PULSE 82; RESP 16; TEMP 36.8
[2019-12-30] MEDS: Famotidine 20 MG Tablet PO (11:56)
[2019-12-30] MEDS: Acetaminophen 500 MG Tablet 1000 MG PO (11:59)
[2019-12-30 13:30] VITALS: BP 128/83; PULSE 68; RESP 16; TEMP 37.1
[2019-12-30 18:32] VITALS: BP 123/84; PULSE 69; RESP 16; TEMP 36.6
== END 2019-12-30 19:30 | disposition home or self-care (01) | DRG 807 ==
PROVIDERS: Admitting Provider Obstetrics & Gynecology; PCP Nurse Practitioner Family; Visit Provider Obstetrics & Gynecology
DX: O13.4 Gestational [pregnancy-induced] hypertension without significant proteinuria, complicating childbirth (principal); Z37.0 Single live birth; O70.1 Second degree perineal laceration during delivery; O60.14X0 Preterm labor third trimester with preterm delivery third trimester, not applicable or unspecified; O34.13 Maternal care for benign tumor of corpus uteri, third trimester; D25.9 Leiomyoma of uterus, unspecified; Z3A.37 37 weeks gestation of pregnancy
CPT/HCPCS: 59025; 59050; 85025; 86850; 86900; 86901; 99218; J7120; G0378

== ENCOUNTER → 2020-01-03 14:24 | Outpatient (CLI) | payer SELFPAY ==
[2019-12-29 11:11] VITALS: BMI 35.0
[2020-01-03 14:47] LABS: Hematocrit 33.5 % (37-47); Mean Corp Hgb Conc 32.8 g/dL (32-36); Mean Corpuscular Hgb 28.9 pg (27.0-32.0); Mean Corpuscular Volume 88.2 fL (81-99); Mean Platelet Vol. 10.1 fl (6.2-12.0); Platelet Count 330 K/mm3 (150-450); RBC Distribution Width CV 12.8 % (11.6-14.6); RBC Distribution Width SD 40.9 fl (35.1-43.9); White Blood Count 7.9 K/mm3 (4.4-11.0)
[2020-01-03 15:00] LABS: International Normalized Ratio 0.9; Prothrombin Time (Protime)PT. 11.5 SECONDS (11.7-14.9)
[2020-01-03 15:15] LABS: AST(SGOT) 59 U/L (15-37); Alanine Aminotransfer ALT/SGPT 127 U/L (13-56); Creatinine, Serum 0.64 mg/dL (0.55-1.02); EST Glomerular Filtration Rate 110 mL/min (>60); Est Glom Filt Rate - Afr Amer 133 mL/min (>60); Uric Acid 5.6 mg/dL (2.6-6.0)
== END ==
PROVIDERS: PCP Nurse Practitioner Family; Visit Provider Obstetrics & Gynecology
DX: R76.11 Nonspecific reaction to tuberculin skin test without active tuberculosis (principal)
CPT/HCPCS: 36415; 82565; 84450; 84460; 84550; 85027; 85610; 85730

== ENCOUNTER → 2020-01-05 08:34 | Outpatient (CLI) | payer SELFPAY ==
[2019-12-29 11:11] VITALS: BMI 35.0
[2020-01-05 10:24] LABS: 24 Hour Urine Protein 778.7 mg/24HR (<150 MG/24HR); 24HR. UA Prot. Total Volume 3030 mL; Urine Protein (24 Hour) 25.7 mg/dL (<11.9)
== END ==
PROVIDERS: PCP Nurse Practitioner Family; Visit Provider Obstetrics & Gynecology
DX: R31.9 Hematuria, unspecified (principal)
CPT/HCPCS: 81050; 84156

== ENCOUNTER → 2020-02-09 11:41 | Outpatient (CLI) | payer SELFPAY ==
[2019-12-29 11:11] VITALS: BMI 35.0
[2020-02-11 17:09] LABS: HPV Reflexed? NOT INDICATED
== END ==
PROVIDERS: PCP Nurse Practitioner Family; Visit Provider Obstetrics & Gynecology
DX: Z12.4 Encounter for screening for malignant neoplasm of cervix (principal)
CPT/HCPCS: 88175; G0145

== ENCOUNTER → 2024-03-30 | Outpatient (CLI) | payer SELFPAY ==
--- NOTE | 2024-03-30 10:52 | BI_ITS ---
MAMMOGRAPHY - BILATERAL DIAGNOSTIC REASON FOR EXAM: Female, 43 years old. 2 month history of right axillary mass. Bilateral breast nodules. PERTINENT HISTORY: Non-contributory. TECHNIQUE: Digital bilateral breast vandana (3D mammographic acquisition) in the CC and MLO projections. 2-D mediolateral oblique (MLO) and craniocaudad (CC) views of both breasts were obtained. CAD: Full Field Digital Mammography with Computer Added Detection was performed. COMPARISON: None. Baseline examination. FINDINGS: Breast Composition: The breasts are heterogeneously dense, which may obscure small masses. Asymmetrical prominence of the axillary region of the left breast. Nodular densities are seen in the upper lateral and upper inner quadrants of the right breast. Correlation with ultrasound recommended. No other significant abnormalities are identified. BI/DIAG MAMM W/CAD, BILAT IMPRESSION: Asymmetrical prominence of the left axilla as well as nodular density seen in the upper lateral and medial aspect of the right breast. Correlation with ultrasound recommended. ASSESSMENT CATEGORY: BIRADS Category 0: Incomplete. Need additional imaging evaluation. A letter regarding these results will be sent to the patient by the facility within 30 days. Approximately 10% of breast cancers are not detected by mammography. A normal mammogram should not delay biopsy of a clinically suspicious abnormality. Electronically Signed: Omar Franco MD at 12:07 EST ,
--- NOTE | 2024-03-30 11:59 | US_ITS ---
STUDY: ULTRASOUND BREAST - RIGHT REASON FOR EXAM: Female, 43 years old. Abnormal screening mammogram. TECHNIQUE: Axial and longitudinal images of the RIGHT breast were performed with a high resolution ultrasound transducer. # OF IMAGES: 109 COMPARISON: Comparison is made with prior mammogram done earlier today. FINDINGS: RIGHT Breast: Imaging of the right breast was obtained. At the 1:00 position breast at 6 cm from nipple, there is fibroglandular tissue with a cluster of cysts. This measures 1.8 cm x 2.4 cm x 0.8 cm. There is also evidence of dilated retroareolar ducts with internal nodular density suggestive of a papillomas. The larger measures 7 mm x 6 mm x 3 mm. IMPRESSION: Dilated retroareolar ducts with papillomas as described. Cluster of cysts in the upper inner quadrant of the right breast. ASSESSMENT CATEGORY: BIRADS Category 2: Benign. A letter regarding these results will be sent to the patient by the facility within 30 days. Electronically Signed: Omar Franco MD at 13:12 [facility] , STUDY: ULTRASOUND BREAST - LEFT REASON FOR EXAM: Female, 43 years old. Axillary prominence of the left breast. TECHNIQUE: Axial and longitudinal images of the LEFT breast were performed with a high resolution ultrasound transducer. # OF IMAGES: 109 COMPARISON: Comparison is made with prior mammogram done earlier in the day. FINDINGS: LEFT Breast: The axillary region of the left breast was examined with ultrasound. No sonographic abnormality is seen. US/Breast Limited Unilateral IMPRESSION: No sonographic abnormality is seen. ASSESSMENT CATEGORY: BIRADS Category 1: Negative. A letter regarding these results will be sent to the patient by the facility within 30 days. Electronically Signed: Omar Franco MD at 13:13 EST ,
== END | disposition home or self-care (01) ==
PROVIDERS: PCP Nurse Practitioner Family; Referring Provider Nurse Practitioner Women's Health; Visit Provider Nurse Practitioner Women's Health
DX: N63.10 Unspecified lump in the right breast, unspecified quadrant (principal); R92.8 Other abnormal and inconclusive findings on diagnostic imaging of breast
CPT/HCPCS: 76642; 77062; 77066; G0279

== ENCOUNTER → 2024-04-07 | Outpatient (CLI) | payer SELFPAY ==
[2024-04-07 12:19] LABS: Absolute Lymphocyte Count 1.65 X10^3/uL (0.83-4.51); Absolute Neutrophil Count 1.8 X10^3/uL (2.0-7.7); Basophil# 0.02 X10^3/uL; Basophil% 0.5 % (0-1); Eosinophil# 0.07 X10^3/uL; Eosinophils% 1.9 % (0-5); Hematocrit 39.1 % (37-47); Hemoglobin 12.3 g/dL (12.0-15.0); Lymphocyte # 1.65 X10^3/ul (0.83-4.51); Lymphocyte % 43.9 % (19-41); Mean Corp Hgb Conc 31.5 g/dL (32-36); Mean Corpuscular Hgb 26.9 pg (27.0-32.0); Mean Corpuscular Volume 85.4 fL (81-99); Mean Platelet Vol. 10.8 fl (6.2-12.0); Monocyte# 0.24 X10^3/uL; Monocyte% 6.4 % (0-10); NRBC Flagged by Analyzer 0 % (0-5); Neutrophil # 1.78 X10^3/uL (2.7-7.7); Neutrophil % 47.3 % (47-70); Platelet Count 315 K/mm3 (150-450); RBC Distribution Width CV 14.1 % (11.6-14.6); RBC Distribution Width SD 43.9 fl (35.1-43.9); Red Blood Count 4.58 M/mm3 (4.2-5.4); White Blood Count 3.8 K/mm3 (4.4-11.0)
== END | disposition home or self-care (01) ==
LOC: BIMLAB 10:12
PROVIDERS: PCP Family Medicine; Referring Provider Family Medicine; Visit Provider Family Medicine
DX: D64.9 Anemia, unspecified (principal)
CPT/HCPCS: 36415; 85025

== ENCOUNTER 2024-04-19 09:01 | Day surgery (SDC) | payer SELFPAY, OTHER ==
[2024-04-19] VITALS (10 sets, daily range): BP systolic 117–141; BP diastolic 74–85; PULSE 62–86; RESP 16; TEMP 36.1–37.5; O2SAT 99–100; BMI 28.6
--- NOTE | 2024-04-19 09:31 | PRE.ANES_ITS ---
ASA Classification* ASA Classification ASA Classification: 2 Assessment & Plan Anesthesia* Anesthesia Assessment Anesthesia Assessment: Discussed sedation and/or anesthesia options, risks, benefits, and alternatives with patient/parents/legal guardian/POA. Questions invited. The patient/parents/legal guardian/POA seems to understand and agrees to proceed with anesthesia plan. Reviewed the physical assessment, medical history, allergy history and patient home medications list prior to surgery/procedure/anesthetic and documented any changes. Performed airway and anesthesia risk assessments. Anesthesia Type Anesthesia Type: MAC (GA bkup) Anesthesia Focused Assessment* Airway Assessment Mouth opens: >3 cm Mallampati Score: II Focused Labs Anesthesia Preop lab: CBC WBC 3.8 K/mm3 (4.4-11.0) L 04/07/24 10:13 RBC 4.58 M/mm3 (4.2-5.4) 04/07/24 10:13 Hgb 12.3 g/dL (12.0-15.0) 04/07/24 10:13 Hct 39.1 % (37-47) 04/07/24 10:13 Plt Count 315 K/mm3 (150-450) 04/07/24 10:13 CHEMISTRY Potassium 3.8 mmol/L (3.5-5.1) 09/17/19 09:45 Sodium 138 mmol/L (136-145) 09/17/19 09:45 BUN 7 mg/dL (7-18) 09/17/19 09:45 Creatinine 0.64 mg/dL (0.55-1.02) 01/03/20 14:27 Glucose 80 mg/dL (74-106) 09/17/19 09:45 TSH 1.90 uIU/mL (0.358-3.74) 06/22/19 16:00 COAG PT 11.5 SECONDS (11.7-14.9) L 01/03/20 14:27 Urine Test Pending 04/19/24 09:15 Pre-Assessment Diagnosis/Proposed Procedure Planned Operative Procedure(s): (R) Excision,Right Breast Central Ductal Anesthesia History 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 When Was Last Pacemaker Check QUESTION #4 FULL TEXT: You/Your Family Experience fever (hyperthermia) with Anesthesia Last Oral Intake Last Oral intake: Last Oral Intake NPO since Meds taken in AM with sips of water? Meds patient instructed to take am of surgery PONV PONV - outside parts salesman: PONV - outside parts salesman Female Yes 04/12/24 08:20 HX of Motion Sickness Yes 04/12/24 08:20 HX of N/V After Surgery No 04/12/24 08:20 Non-Smoker Yes 04/12/24 08:20 Duration of Surgery greater No 04/12/24 08:20 than 60 minutes Number of Risk Factors 3 04/12/24 08:20 PONV Score Moderate Risk 04/12/24 08:20 Height & Weight Height & Weight: Anesthesia: Height & Weight Height 5 ft 2 in 04/07/24 12:58 Respiratory Assessment Respiratory Assessment - outside parts salesman: Respiratory Tract Infection Hx - outside parts salesman Hx Respiratory Tract Infection No 04/12/24 08:20 STOP Sleep Apnea STOP Sleep Apnea - outside parts salesman: STOP Sleep Apnea - outside parts salesman Hx Hypertension No 04/12/24 08:20 Hx Sleep Apnea No 04/12/24 08:20 CPAP BIPAP Do you snore loudly (louder No 04/12/24 08:20 than talking or can be heard Do you often feel tired/ No 04/12/24 08:20 fatigued/ sleepy during daytime? Has anyone observed you stop No 04/12/24 08:20 breathing during sleep? STOP Results Negative 04/12/24 08:20 QUESTION #5 FULL TEXT : Do you snore loudly (louder than talking or can be heard through closed doors)? Tobacco Use History Tobacco Use History - outside parts salesman: Tobacco Use History - outside parts salesman Tobacco Use Smoking Status Never smoker 04/12/24 08:20 Hx Tobacco Use No 04/12/24 08:20 Years Smoking Packs Smoked per Day Smoking Cessation Date was within the last 15 years Hx Smoking Cessation Date Hx Smoking Cessation Counseling Hematologic Medial History Hematologic Hx - outside parts salesman: Hematologic Medical Hx - snapper on Hx of Blood Transfusion No 04/12/24 08:20 Hx of Transfusion in last 3 No 04/12/24 08:20 Months Date of Last Transfusion (if within last 3 months) Ever experience any problems No 04/12/24 08:20 with transfusion(s)? Specify any problems Hx of Preganancy in last 3 N/A 04/12/24 08:20 Months Nurse Filling Out Transfusion NBUCHER 04/12/24 08:20 & Questions: Date: 04/12/24 04/12/24 08:20 Time: 08:20 04/12/24 08:20 Patient unable to answer at this time (ie. confused, unrespo /Reproduction History /Reproductive History - outside parts salesman: /Reproductive Hx- outside parts salesman Hx Now No 04/12/24 08:20 Gestational Age (in weeks): EDC: Hx Hx Para Hx Section SAB No 04/12/24 08:20 Active Medications Active Medications: Current Medications Generic Name Dose Route Start Last Admin Trade Name Freq PRN Reason Stop Dose Admin Cefazolin Sodium 2 gm/ N/A 20 mls @ 400 mls/hr 04/19/24 12:50 IV 04/19/24 12:52 PREOP [facility] Medical History Wears contact lenses Nipple discharge Breast pain Torn rotator cuff Home Medications ?Medication ?Instructions ?Recorded ?Last Taken ?Type vitamin A-vitamin C-vitamin E 1 tab PO QAM 04/07/24 Unknown History Allergy/AdvReac Type Severity Reaction Status Date / Time No Known Allergies Allergy Verified 04/19/24 09:28 Family History Mother Hypertension Anxiety Brother Hypertension Father Hypertension Surgical History History of varicose vein ligation History of arthroplasty of left shoulder Social History household members: spouse and children housing: house current occupation: stay at home mom Smoking Status: Never smoker alcohol intake: never substance use type: does not use what type of physical activity do you participate in: none seatbelt use: always do you feel safe at home: Yes Review of Systems (Anesthesia) ROS Narrative System reviewed and no additional complaints, except as documented.
[2024-04-19 09:34] LABS: Internal QC Validated? YES +Cl - CLEAR BKGD; Pregnancy, Urine Negative Negative
--- NOTE | 2024-04-19 10:47 | PCM.HP.BLA ---
History and Physical Date of Admission: 04/19/24 Intake Vital Signs 03/30/2410:46 04/07/2409:25 04/07/2412:58 Height 5 ft 1 in 5 ft 2 in 5 ft 2 in Weight: 158 lb 159 lb 2 oz BMI 28.9 29.0 BP 170/90 H 128/85 H Blood Pressure Location Lt brachial Rt brachial Position Sitting Sitting Respiration 16 18 Pulse 86 74 Pulse Source Monitor Monitor Temp 97.6 F L 97.2 F L Temp Source Temporal Temporal Pulse Oximetry (%) 99 100 Oxygen Delivery Method room air room air Intake Visit Reasons: BLOODY NIPPLE DISCHARGE Chief Complaint: bloody nipple discharge Accompanied by: Is patient in pain?: No Allergies No Known Allergies Allergy (Verified 04/07/24 12:59) Medications ?Medication ?Instructions ?Recorded ?Confirmed ?Type vitamin A-vitamin C-vitamin E 1 tab PO QAM 04/07/24 04/07/24 History PFSH Medical History (Updated 04/07/24 @ 12:58 by Maddy Valentin LPN) Nipple discharge Breast pain Torn rotator cuff Surgical History History of varicose vein ligation History of arthroplasty of left shoulder Family History Mother Hypertension AnxietyBrother HypertensionFather Hypertension Social History household members: spouse and children housing: house current occupation: stay at home mom Smoking Status: Never smoker alcohol intake: never substance use type: does not use what type of physical activity do you participate in: none seatbelt use: always do you feel safe at home: Yes HPI HPI HPI: Patient is a 43-year-old female here with right nipple discharge. She says that it started as bloody nipple discharge and has progressed to brown nipple discharge. She is also having some pain behind the nipple during her periods. She does not report any milky discharge. She does not have any pain on the opposite side. She has no family history of breast cancer. ROS General General: No weight change, appetite, fatigue, colon cancer, breast cancer or weakness HEENT HEENT: No difficulty swallowing, eye injury, eye surgery, swollen glands or hoarseness Endo Endocrine: No thyroid disease, diabetes mellitus, thyroid cancer, Hair loss, heat intolerance or cold intolerance Skin Skin: No rash or changing moles Breast Breast: Yes nipple discharge and breast pain; No left breast lump, right breast lump, abnormal mammogram, abnormal US or breast enlargement Musc Musculoskeletal: No back problems, arthritis, rheumatoid arthritis, gout or joint pain Cardio Cardiovascular: No murmur, pacemaker, heart disease, atrial fibrillation, high blood pressure, heart attack, heart stent, palpitations, shortness of breat with exertion or chest pain Psych Psychiatric: No depression, anxiety or hearing voices Resp Respiratory: No shortness of breath, No sleep apnea, No cough, No COPD, No asthma, No emphysema and No wheezing Gastro Gastrointestinal: No abdominal pain, No nausea or vomiting, No diarrhea, No constipation, No blood in stool, No acid reflux, No hemorrhoids, No ulcers, No gallbladder problem and No black,tarry stools Demetrius Hematologic: No blood thinners, No blood disorders, No bleeding, No anemia and No blood clots Neuro Neurologic: No numbness, No tingling and No weakness Exam Const General: cooperative Orientation: alert and oriented x3 HENMT Head: normal to inspection Neck Neck: normal visual inspection and full ROM Chest Chest palpation & inspection: normal inspection of the chest Resp Effort & Inspection: normal respiratory effort Auscultation: clear to auscultation bilaterally Cardio Rate: regular rate Rhythm: regular rhythm GI Inspection: non-distended Palpation: soft and nontender Skin General: no rashes or lesions noted Neuro General: patient alert and patient oriented x3 Extrem General: full ROM Psych Appearance: grossly normal Mental Status: mental status grossly normal Assessment and Plan Assessment and Plan (1) Nipple discharge: Status: Acute (2) Breast pain: Status: Acute (3) Papilloma of right breast: Status: Acute Plan The patient is here for our drainage from her right breast. She is having nipple drainage and nipple discharge which started out bloody and is now brown. She had an ultrasound that showed several dilated ducts and several papillomas. I discussed performing a central ductal excision for her. I discussed the procedure in detail and answered all of her questions. All the risks were discussed including but not limited to bleeding, infection, poor cosmetic outcome, need for further surgery. Patient understands the risks and is willing to proceed. She was offered a plastic surgery consult but denied it. Baldev Maldonado MD Pager: [facility] [address] [place] [address], [address] [place] [address] Office: I have examined the patient and the H&P has been reviewed. There are no clinical changes since date of exam.
--- NOTE | 2024-04-19 10:50 | BRBX_PTH ---
PATIENT: DIANA ARAGON LOC: [facility] [place] U#:[id number] AGE/SX: 43/F ROOM: RE04/19/[address]: Dr. Baldev Maldonado MD : 1980 BED: DIS: 04/19/2024 SPEC #: [id number] RECD: 04/19/24 13:14 STATUS: ABRAHAN REAdri #: [id number] GIUSEPPE: 04/19/24 10:[address]: Baldev Maldonado DEPT: SURGICAL PATHOLOGY RECD BY: Ara Abdullahi ENTERED: 04/20/24 07:07 SP TYPE: BREAST BX OTHR DR: Dr. Pranav Quiroga, DO Tissues: Right breast, NOS Procedures: Surgery Specimen Level IV HEADER OPERATION: Excision right breast central ductal PRE-OP DIAGNOSIS: Nipple discharge, breast pain, papilloma of right breast TISSUE SUBMITTED: Central duct excision right breast Ischemic Time: 1 minute Fixation Time: 7 hours MICROSCOPIC DIAGNOSIS Central duct excision, right breast, lumpectomy: Intraductal papilloma. Mild fibrocystic change. Focal intraductal hyperplasia without atypia. No evidence of malignancy. AM. 04/23/2024 MICROSCOPIC DESCRIPTION Slides are reviewed. GROSS DESCRIPTION Received in fixative is one container labeled with the patient's name and designated Central duct excision right breast. The specimen consists of three irregular fragments of hawkins-yellow fibrofatty tissue ranging in size from 1.0 to 6.5 cm. No orientation is provided. The external surfaces are inked and fragments are serially sectioned to reveal yellow cut surfaces. No mass lesion is identified. Retail Sales Merchandiser Development sections are submitted in ten cassettes after additional fixation. AM. 04/21/2024 TC:5 CPT:04058
[2024-04-19] MEDS: Cefazolin 2 GM in Syringe IV (11:33)
[2024-04-19] MEDS: Bupivacaine Mpf 0.5% 30 ML VIAL (12:03)
--- NOTE | 2024-04-19 12:13 | PCM.OPRPT ---
Operative Report (Standard) Operative Information Surgery/Procedure Performed: Right breast central ductal excision Surgeon: Baldev Maldonado Date of Procedure: 04/19/24 Procedure Start Time: 11:43 Procedure Stop Time: 12:14 Pre-Operative Diagnosis: Papillomas of the right breast Post-Operative Diagnosis: Same Select all DRAINS/GRAFTS/IMPLANTS that apply: None Type of Anesthesia: General/Regional Estimated Blood Loss: 5 Specimen collected: Yes Description of specimen(s) removed: Right breast central ductal excision Description of surgery: Patient was brought to the operating room and general anesthesia was induced. The right breast was prepped and draped in usual sterile fashion. A curvilinear incision was made lateral and inferior of the nipple at the areolar complex. Incision was deepened to the breast tissue. Next the nipple was cleared of tissue. The tissue behind the nipple was then removed using electrocautery dissection. It was sent for pathology. At the end of the case there was no more nipple discharge. Next the incision was closed with interrupted 3-0 Vicryl sutures and a running 4-0 Monocryl suture. Dermabond was applied as well as surgical fluffs and a surgical bra. Patient tolerated the procedure well. Surgical Findings: none Jack Strip Assembler street cleaner: Yes Apprentice Architect: Heather Swann Tasks completed by medical assistant float: Opening and Closing Complications Complications: No Admit VTE Documentation VTE Mechan Device Prophylaxis: SCD's
--- NOTE | 2024-04-19 12:16 | EX.PCM.DISCH ---
Discharge Instructions Diet Discharge Diet: Light diet - advance as tolerated Activity Discharge Activity: Return to Normal Activity and May Shower Additional Activity Instructions:: Alternate ibuprofen and Tylenol for pain control, oxycodone for breakthrough pain. Dressing / Incision Call your doctor if your incision/area has: Continuous Slow Oozing, Sudden Increased Bleeding, Increased Pain/ Swelling, Increased Redness, Foul Smelling Discharge and Swelling at the incision site Cleanse incision/area with: Soap & Water Follow Up Care Please Follow Up With: Baldev Maldonado MD When: Please call to schedule 2 week follow up appointment. [phone] Test Results: Test results from this visit will be discussed in further detail at your follow-up appointment, if applicable. Discharge Plan Admission Attending Provider: Baldev Maldonado Primary Care Provider: Pranav Quiroga Instructions Print Language: Kittitian Discharge Orders/Prescriptions Prescriptions: New oxycodone 5 mg tablet 5 - 10 mg PO Q6H PRN (Reason: pain) 5 Days Qty: 14 0RF No Action vitamin A-vitamin C-vitamin E Tablet 1 tab PO QAM Rx Instructions: administer with a meal Referrals / Follow Up: Pranav Quiroga DO [Primary Care Provider] - Disposition Disposition (needs filled in before D/C Order can be placed): Home, Self Care
--- NOTE | 2024-04-19 12:29 | PCM.POST.ANE ---
Anesthesia: Postop Eval I Current Vital Signs Temperature: 98.2 F Pulse Rate: 73 Blood Pressure: 134/81 Respiratory Rate: 16 Pulse Ox: 99 Oxygen Delivery Method: Room Air Assessment Airway patent: Yes Spontaneous unlabored respirations: Yes nausea: No Vomiting: No Anesthesia Complication: No Fluid Hydration Crystalloid volume administer (ml): 500 Total IV fluid infused: 500 Progress Note Post-operative progress note: Fentanyl 25 mcg given in PACU Anesthesia document: Postop Eval 1 completed: Yes
--- NOTE | 2024-04-19 14:42 | PCM.POSTANE2 ---
Anesthesia Postop Eval I Sum Postop Eval Completion status Anesthesia document: Postop Eval 1 completed: Yes Anesthesia Postop Eval I Summary Anesthesia Postop Eval I Summary: Anesthesia Postop Eval I: Assessment Summary Airway patent Yes 04/19/24 12:44 Spontaneous unlabored Yes 04/19/24 12:44 respirations Mental status nausea No 04/19/24 12:44 Vomiting No 04/19/24 12:44 Anesthesia Postop Eval I: Fluid Summary Crystalloid volume administer 500 04/19/24 12:44 (ml) Colloids volume administered ( ml) Blood Product volume administered (ml) Total IV fluid infused 500 04/19/24 12:44 Anesthesia Postop Eval I: Summary Notes Anesthesia Complication No 04/19/24 12:44 Anesthesia Complication Comment: Post-operative progress note Fentanyl 25 mcg 04/19/24 12:44 given in PACU Anesthesia: Postop Eval II Evaluation Mental status: Awake and Calm Pain Level: 1 nausea: No Vomiting: No Complications Anesthesia Complication: No
== END 2024-04-19 14:48 | disposition home or self-care (01) ==
LOC: SDC 09:12 → AC 09:13
PROVIDERS: Anesthesiology; PCP Family Medicine; Referring Provider Surgery; Visit Provider Surgery
PROC: (CPT 19301; principal; 2024-04-19 10:35)
DX: D24.1 Benign neoplasm of right breast (principal); N60.11 Diffuse cystic mastopathy of right breast
CPT/HCPCS: 19301; 00400; 81025; 88305; A4648; A4216; J2405